=== PATIENT | male | born 1990 | race Caucasian/White ===

== ENCOUNTER 2020-11-11 22:58 | Emergency (ER) | payer OTHER, SELFPAY ==
[2020-11-11 23:02] VITALS: BP 138/76; PULSE 106; RESP 16; TEMP 36.9; O2SAT 96; BMI 24.4
--- NOTE | 2020-11-11 23:36 | XR_ITS ---
EXAMINATION: XR CHEST CLINICAL INFORMATION: Shortness of breath COMPARISON: None TECHNIQUE: Frontal view of the chest was obtained. FINDINGS: The lungs are well expanded. There is no focal consolidation, edema, or effusion. Mild bronchial wall thickening noted. No pneumothorax. The cardiomediastinal silhouette is within normal limits. No acute osseous abnormality. XR/XR chest 1V IMPRESSION: No consolidation. Bronchial wall thickening can be seen with a small airways process such as asthma or atypical/viral infection.
[2020-11-11 23:55] VITALS: BP 119/87; PULSE 94; RESP 18; TEMP 36.9; O2SAT 99
[2020-11-11] MEDS: Magnesium Hydrox/Alum Hydrox 30 ML ORAL.SUSP PO (23:55)
--- NOTE | 2020-11-11 23:55 | ED_ITS ---
HPI - General Adult General Chief complaint: General Medical Stated complaint: Sore throat Time Seen by Provider: 11/11/20 23:27 Source: patient Mode of arrival: ambulatory History of Present Illness HPI narrative: 30-year-old male with past medical history of asthma presenting to the ED complaining sore throat, nausea, diarrhea, and intermittent SOB x1 day. Also reports generalized fatigue/chills. Denies fever, vomiting, CP, abdominal dysuria/hematuria, recent travel, sick contacts, difficulty/inability to swallow Onset (ago): day(s) Related Data Previous Rx's Medication Instructions Recorded albuterol sulfate 2 puff INHALATION Q4-6H PRN #6.7 g 11/12/20 azithromycin See Rx Instructions .ROUTE 11/12/20 .COMPLEX #6 tab Allergies Allergy/AdvReac Type Severity Reaction Status Date / Time No Known Allergies Allergy Verified 11/11/20 23:02 Review of Systems Review of Systems: Constitutional: No Weight loss, No Fever, + Chills, +fatigue ENT/Mouth: No Ear Pain, No Nasal Congestion, No Sinus Pain, No Hoarseness, + sore throat, No Rhinorrhea, No Swallowing Difficulty Cardiovascular: No Chest Pain, +intermittent SOB Respiratory: No Cough, No Sputum, No Wheezing Gastrointestinal: + Nausea, No Vomiting, + Diarrhea, No Constipation, No Abdominal pain Musculoskeletal: No joint pain, No Myalgias, No Joint Swelling Skin: No Skin Lesions, No rash Yes all other systems are reviewed and are negative [facility] Past Medical History Attestation statement: The following information was validated with the patient. Medical History (Updated 11/12/20 @ 00:14 by BULMARO Ponce) Asthma Social History Social History Alcohol intake: never Smoking Status: Never smoker Use of substances other than those prescribed or required for medical reasons: No Advance Directives: No Physical Exam Vital Signs: Vital Signs: Last Vital Signs Temp 98.4 F 11/11/20 23:55 Pulse 94 11/11/20 23:55 Resp 18 11/11/20 23:55 BP 119/87 11/11/20 23:55 Pulse Ox 99 11/11/20 23:55 Body Mass Index 24.4 Const: General: cooperative, healthy appearing and no acute distress Orientation/consciousness: patient oriented x3 Limitations: no limitations HENMT: Head: Yes normal to inspection Ears: hearing grossly normal bilaterally General nose exam: Normal external nose present Face and sinus: Yes normal facial exam Mouth: Normal oral and palatal mucosa present Throat: Yes posterior oropharynx normal (mild posterior oropharyngeal erythema ), Yes tonsils normal, Yes uvula midline and No peritonsillar mass Eyes: General: appearance normal, both eyes and all related structures EOM: EOMs intact bilaterally Neck: Neck: Yes normal visual inspection and Yes no meningeal signs Resp: Effort & Inspection: normal respiratory effort Auscultation: clear to auscultation bilaterally, no rales, no rhonchi and no wheezes Cardio: Rate: regular rate Heart sounds: S1 normal heart sound present and S2 normal heart sound present GI: Inspection: Yes normal to inspection Palpation (GI): Soft to palpation, nontender, no guarding and not rigid Skin: Rashes: no rashes Wounds: no wounds Neuro: General: patient oriented x3 and no meningeal signs Extrem: General: Yes normal to inspection Course Course Course Narrative: * Chest x-ray without consolidation, but bronchial wall thickening which can be seen with a small airway process such as asthma or atypical/viral infection > will initiate Azithromycin and ambulate with pulse ox * 1235-- patient maintained saturation 98-99% on room air with pulse ox on exertion in the ED Imaging results discussed with patient including worrisome signs and symptoms and strict return precautions. Discussed with patient he most likely has COVID- 19, and needs to self isolate for 10-14 days. If he develops constant worsening chest pain, shortness of breath, or high fevers unresolved Tylenol home needs return to the ED Medical Decision Making MDM Narrative Medical decision making narrative: 30-year-old male with past medical history of asthma presenting to the ED complaining sore throat, nausea, diarrhea, and intermittent SOB x1 day. Also reports generalized fatigue/chills. On exam mildly tachycardic, NAD/nontoxic, lungs CTA, uvula midline. Likely viral syndrome/COVID-19. Low concern for EMBOSSING TOOLSETTER, intra-abdominal process, or pneumonia/ACS or PE Plan: CXR, COVID-19 testing Discharge Plan Discharge Clinical Impression: Acute viral syndrome Patient Disposition: Home, Self-Care Instructions: Viral Syndrome (ED) Additional Instructions: Your Chest xray shows atypical viral infection. YOU MOST LIKELY HAVE COVID19 YOU SHOULD SELF ISOLATE FOR 10-14 DAYS Azithromycin is an antibiotic, take as prescribed Albuterol inhaler will help with shortness or breath, take as needed if you have constant or worsening shortness of breath, fever, or chest pain return to the ED Based on your symptoms and history we have sent a COVID-19. Although your RESULT IS PENDING at this time. RESULTS should return within 2-7 days At this time you will be contacted with either NEGATIVE OR POSITIVE results. -Please wait until we contact you for your results. At this time you will be okay for discharge. Please plan for self quarantine for up to 14 days. Do not expose yourself to others. You may not go to work. If testing does come back negative you may return to activities as long as you are no longer having any symptoms for at least 3 days. Please continue to follow cold instructions and wash your hands frequently. You may take Tylenol as directed on the bottle for pain or fever. CDC Guidelines for home isolation: - Stay away from others - WEAR A MASK if you are sick AND STAY HOME - Cover your mouth and nose with a tissue when you cough or sneeze. Dispose of tissues in a lined trash can and wash your hands immediately with soap and water for at least 20 seconds. If soap and water are not available, clean hands with alcohol-based hand electric razor mechanic that contains at least 60% alcohol. - Clean your hands often with soap and water for at least 20 seconds - Avoid touching your eyes, nose and mouth with unwashed hands - Do not share dishes, drinking glasses, cups, eating utensils, towels, or bedding with other people in your home. After using these items, wash them thoroughly with soap and water or put in the hoe worker. - Clean high-touch surfaces in your isolation area ( sick room and bathroom) every day; let a caregiver clean and disinfect high-touch surfaces in other areas of the home. Clean the area or item with soap and water or another detergent if it is dirty. Then, use a household disinfectant. - Limit contact with pets and animals: If you must care for a pet, wash your hands before and after interacting with them) Prescriptions: New albuterol sulfate 90 mcg/actuation HFA aerosol inhaler 2 puff inhalation Q4-6H PRN (Reason: shortness of breath or wheezing) Qty: 6.7 RF: 0 azithromycin 250 mg tablet See Rx Instructions .ROUTE .COMPLEX Qty: 6 RF: 0 Referrals: Physician,None [Primary Care Provider] - 2 days Stand Alone Forms: Work/School Release
[2020-11-12] MEDS: Azithromycin 500 MG TABLET PO (00:32)
== END 2020-11-12 00:42 | disposition home or self-care (01) ==
PROVIDERS: Physician Assistant; Emergency Provider Internal Medicine
DX: B34.9 Viral infection, unspecified (principal); J45.909 Unspecified asthma, uncomplicated; Z20.828 Contact with and (suspected) exposure to other viral communicable diseases
CPT/HCPCS: 71045; 99284; U0003

== ENCOUNTER 2020-11-13 21:21 | Emergency (ER) | payer OTHER, SELFPAY ==
[2020-11-13 21:29] VITALS: BP 140/94; PULSE 118; RESP 20; TEMP 37.6; O2SAT 99
--- NOTE | 2020-11-13 21:36 | ECG_ITS ---
Test Reason : ANXIETY Blood Pressure : / mmHG Vent. Rate : 091 BPM Atrial Rate : 091 BPM P-R Int : 130 ms QRS Dur : 098 ms QT Int : 372 ms P-R-T Axes : 058 023 050 degrees QTc Int : 457 ms Normal sinus rhythm Normal ECG No previous ECGs available Referred By: Denisa Lopez Electronically Signed By:SAM VILLATORO
[2020-11-13 21:40] VITALS: BP 142/00; PULSE 101; PULSE 94; RESP 18; TEMP 37.6; O2SAT 98; O2SAT 99; BMI 24.4
[2020-11-13 21:44] VITALS: BP 120/87
--- NOTE | 2020-11-13 21:47 | ED_ITS ---
HPI - URI/Sore Throat General Chief Complaint: Upper Respiratory Symptoms Stated Complaint: FLU LIKE SYMPTOMS, NO RESULTS FROM TEST DONE 11/11 Time Seen by Provider: 11/13/20 21:36 Source: patient and EMS Mode of arrival: EMS History of Present Illness HPI Narrative: 30-year-old male with past medical history of asthma presenting to the ED complaining of increased anxiety since earlier today with assoc chest discomfort and dry mouth. Patient was recently seen and tx in ED on 11/11 for viral sx's, x-ray showed bronchial wall thickening/asthma/atypical or viral infection, patient currently taking Azithromycin. Denies fever, chills, sh ortness of breath. Admits to similar symptoms with anxiety in the past. COVID- 19 test still pending Related Data Previous Rx's Medication Instructions Recorded albuterol sulfate 2 puff INHALATION Q4-6H PRN #6.7 g 11/12/20 azithromycin See Rx Instructions .ROUTE 11/12/20 .COMPLEX #6 tab Allergies Allergy/AdvReac Type Severity Reaction Status Date / Time No Known Allergies Allergy Verified 11/13/20 21:39 Review of Systems Review of Systems: Constitutional: No Weight loss, No Fever, No Chills Cardiovascular: + Chest Pain, No SOB Respiratory: No Cough, No Sputum, No Wheezing Gastrointestinal: No Nausea, No Vomiting, No Diarrhea, No Constipation, No Abdominal pain Musculoskeletal: No joint pain, No Myalgias, No Joint Swelling Skin: No Skin Lesions, No rash Neuro: +anxiety Yes all other systems are reviewed and are negative PMFSH Past Medical History Attestation statement: The following information was validated with the patient. Medical History (Updated 11/13/20 @ 23:21 by BULMARO Ponce) Asthma Social History Social History Alcohol intake: never Smoking Status: Never smoker Advance Directives: No Advance Directives Information Provided: No Physical Exam Vital Signs: Vital Signs: Last Vital Signs Temp 99.7 F 11/13/20 21:40 Pulse 101 H 11/13/20 21:40 Resp 18 11/13/20 21:40 BP 120/87 11/13/20 21:44 Pulse Ox 99 11/13/20 21:40 Body Mass Index 24.4 Const: General: cooperative, healthy appearing and anxious Orientation/consciousness: patient oriented x3 Limitations: no limitations HENMT: Head: Yes normal to inspection Ears: hearing grossly normal bilaterally General nose exam: Normal external nose present Face and sinus: Yes normal facial exam Eyes: General: appearance normal, both eyes and all related structures EOM: EOMs intact bilaterally Neck: Neck: Yes normal visual inspection Resp: Effort & Inspection: normal respiratory effort Auscultation: clear to auscultation bilaterally, no rales, no rhonchi and no wheezes Cardio: Rate: regular rate Heart sounds: S1 normal heart sound present and S2 normal heart sound present GI: Inspection: Yes normal to inspection Skin: Rashes: no rashes Wounds: no wounds Neuro: General: patient oriented x3 Gait exam (Neuro): Normal gait present Extrem: General: Yes normal to inspection Course Course Course Narrative: EKG NSR rate 91, nonischemic * patient reports sx improvement after ativan. Is sleeping in chair, denies CP/anxiety at present. Did report some nausea >Zofran given MDM - URI/Sore Throat MDM Narrative Medical decision making narrative: On exam low grade temp, tachycardic, anxious, jittery, nontoxic appearing, lungs cta. Concern for anxiety reaction. Low concern for ACS/PE Plan: EKG, Ativan/Tylenol, reassess Discharge Plan Discharge Clinical Impression: Anxiety Patient Disposition: Home, Self-Care Instructions: Anxiety (ED) Additional Instructions: Continue taking previously prescribed medications new line stay hydrated at home Follow-up with her primary care doctor You should continue to self isolate as a COVID-19 swab is pending. Continue take Tylenol at home for fevers, and Motrin Tylenol does not control temperature. If you have constant worsening shortness of breath, chest pain, or fever unresolved medications return to the ED Prescriptions: No Action albuterol sulfate 90 mcg/actuation HFA aerosol inhaler 2 puff inhalation Q4-6H PRN (Reason: shortness of breath or wheezing) Qty: 6.7 RF: 0 azithromycin 250 mg tablet See Rx Instructions .ROUTE .COMPLEX Qty: 6 RF: 0 Referrals: Physician,Unknown [Primary Care Provider] - 2 days
[2020-11-13] MEDS: LORazepam 1 MG TABLET PO (22:01)
[2020-11-13] MEDS: Acetaminophen 325 MG TABLET 650 MG PO (22:01)
[2020-11-13 23:30] VITALS: BP 113/87; PULSE 85; RESP 18; TEMP 37.6; O2SAT 98
== END 2020-11-13 23:29 | disposition home or self-care (01) ==
PROVIDERS: Emergency Provider Emergency Medicine
DX: F41.9 Anxiety disorder, unspecified (principal)
CPT/HCPCS: 93005; 99283

== ENCOUNTER 2020-11-14 12:17 | Emergency (ER) | payer OTHER, SELFPAY ==
[2020-11-14 14:02] VITALS: BP 140/80; PULSE 96; RESP 16; TEMP 37.1; O2SAT 99; BMI 24.4
--- NOTE | 2020-11-14 14:50 | ED.ANXIETY ---
HPI - Anxiety General Chief Complaint: Anxiety Stated Complaint: anxiety Time Seen by Provider: 11/14/20 14:02 Source: patient Mode of arrival: ambulatory Limitations: no limitations History of Present Illness HPI narrative: Otherwise healthy 30-year-old male who denies significant past medical history states 4 days ago developed some body aches and chills he came to emergency room had a COVID test and he has been awaiting results he has been increasingly anxious as he has been home not doing anything and thinking about his COVID results which is causing exacerbation and his anxiety. He denies any chest pain or fever. No SI or HI. MD complaint: anxiety Provoking factors: none known Associated symptoms: denies other symptoms Related Data Previous Rx's Medication Instructions Recorded hydroxyzine HCl 25 mg PO BID PRN #14 tab 11/14/20 Allergies Allergy/AdvReac Type Severity Reaction Status Date / Time No Known Allergies Allergy Unverified 07/29/20 17:28 Review of Systems Review of Systems: Constitutional: No Weight loss, No Fever, No Chills, No Night Sweats, No Fatigue, No Malaise ENT/Mouth: No Hearing loss, No Ear Pain, No Nasal Congestion, No Sinus Pain, No Hoarseness, No sore throat, No Rhinorrhea, No Swallowing Difficulty Eyes: No Eye Pain, No Swelling, No Redness, No Foreign Body, No Discharge, No Vision Changes Cardiovascular: No Chest Pain, No SOB, No Dyspnea on Exertion, No Orthopnea, No Edema, No Palpitations Respiratory: No Cough, No Sputum, No Wheezing, No Dyspnea Gastrointestinal: No Nausea, No Vomiting, No Diarrhea, No Constipation, No abdominal Pain, No Hematochezia, No Melena Genitourinary: no irregular bleeding, No Dysuria, No Urinary Frequency, No Hematuria, No Urinary Incontinence, No Urgency, No Flank Pain Musculoskeletal: No joint pain, No Myalgias, No Joint Swelling Skin: No Skin Lesions, No rash Neuro: No Weakness, No Numbness, No Paresthesias, No Loss of Consciousness, No Dizziness, No Headache Psych: + Anxiety/Panic, No Depression, No SI/HI/AH/VH Heme/Lymph: No Bruising, No Bleeding,No Lymphadenopathy Endocrine: No Polyuria, No Polydipsia, No Temperature Intolerance [facility] Past Medical History Medical History (Updated 11/14/20 @ 14:52 by Everardo Koch NP) Asthma Surgical History History of appendectomy Social History Social History Advance Directives: No Advance Directives Information Provided: Yes Physical Exam Vital Signs: Vital Signs: Last Vital Signs Temp 98.7 F 11/14/20 14:02 Pulse 96 11/14/20 14:02 Resp 16 11/14/20 14:02 BP 140/80 H 11/14/20 14:02 Pulse Ox 99 11/14/20 14:02 Body Mass Index 24.4 Reviewed Const: Other: Anxious appearing General: cooperative and healthy appearing; No acute distress or intoxicated appearing Nutritional Appearance: average body habitus Orientation/consciousness: patient oriented x3 HENMT: Head: Yes normal to inspection Ears: hearing grossly normal bilaterally Eyes: General: appearance normal, both eyes and all related structures Visual Ta: normal visual ta by confrontation Neck: Neck: Yes normal visual inspection, No positive Brudzinski's sign, No positive Kernig's sign and No tender Thyroid: Thyroid normal Chest: Chest palpation & inspection: normal inspection of the chest Resp: Effort & Inspection: normal respiratory effort Auscultation: clear to auscultation bilaterally Cardio: Jugular venous distension: no JVD Rate: regular rate Rhythm: regular rhythm Heart sounds: S1 normal heart sound present and S2 normal heart sound present GI: Inspection: Yes normal to inspection Percussion: Yes normal to percussion Auscultation: normal bowel sounds : General: Yes no CVA tenderness Back/Spine/Pelvis: Back: no CVA tenderness Skin: General skin exam: no rashes or lesions noted Neuro: General: patient oriented x3 Extrem: General: Yes normal to inspection Course Course Course Narrative: No previous records it appears that patient used a different last name on previous 2 visits thus cannot locate the COVID results in [facility] lab was called and he used name octavio Oneal and his ID has Octavio Bowden - restriction supervise has been made aware this will review records lab checked on this name and there is COVID test that is still pending. Given his increased psychological stressors from not having her results rapid COVID test will be done. Reevaluation(s) Reevaluation #1: Patient call with negative results will download results from his patient portal. MDM - Anxiety Lab Data Labs: Lab Results 11/14/20 Range/Units 14:48 Coronavirus (PCR) NEGATIVE (Negative) Influenza Type A (PCR) NEGATIVE (Negative) Influenza Type B (PCR) NEGATIVE (Negative) RSV RNA Qual (PCR) NEGATIVE (Negative) Discharge Plan Discharge Clinical Impression: Acute viral syndrome, Anxiety about health Patient Disposition: Home, Self-Care Instructions: Viral Syndrome (ED), Anxiety (ED) Additional Instructions: Based on your symptoms and history we have sent a COVID-19. Although your RESULT IS PENDING at this time. RESULTS should return within 72 hours. At this time you will be contacted with either NEGATIVE OR POSITIVE results. -Please wait until we contact you for your results. At this time you will be okay for discharge. Please plan for self quarantine for up to 14 days. Do not expose yourself to others. You may not go to work. If testing does come back negative you may return to activities as long as you are no longer having any symptoms for at least 3 days. Please continue to follow cold instructions and wash your hands frequently. You may take Tylenol as directed on the bottle for pain or fever. Patient seen in the emergency department and should be excused from work until negative test results AND until 72 hours without any symptoms AND at least 10 days have passed since symptoms first appeared or since last exposure to COVID-19 positive patient CDC Guidelines for home isolation: - Stay away from others - WEAR A MASK if you are sick AND STAY HOME - Cover your mouth and nose with a tissue when you cough or sneeze. Dispose of tissues in a lined trash can and wash your hands immediately with soap and water for at least 20 seconds. If soap and water are not available, clean hands with alcohol-based hand mail sorting supervisor that contains at least 60% alcohol. - Clean your hands often with soap and water for at least 20 seconds - Avoid touching your eyes, nose and mouth with unwashed hands - Do not share dishes, drinking glasses, cups, eating utensils, towels, or bedding with other people in your home. After using these items, wash them thoroughly with soap and water or put in the administrative sales assistant. - Clean high-touch surfaces in your isolation area ( sick room and bathroom) every day; let a caregiver clean and disinfect high-touch surfaces in other areas of the home. Clean the area or item with soap and water or another detergent if it is dirty. Then, use a household disinfectant. - Limit contact with pets and animals: If you must care for a pet, wash your hands before and after interacting with them Prescriptions: New hydroxyzine HCl 25 mg tablet 25 mg PO BID PRN (Reason: anxiety) Qty: 14 RF: 0 Referrals: Physician,None [Primary Care Provider] - 1 week (Primary care PHONE VISIT ) Stand Alone Forms: Work/School Release Interventions: ED Discharge Assessment Last Done: 11/14/20 15:02 Discharge Date/Time: 11/14/20 15:03
[2020-11-14 15:47] LABS: Influenza A PCR NEGATIVE (Negative); Influenza B PCR NEGATIVE (Negative); Resp Syncy Virus RNA Qual PCR NEGATIVE (Negative); SARS COV2 PCR INHOUSE NEGATIVE (Negative)
== END 2020-11-14 15:03 | disposition home or self-care (01) ==
PROVIDERS: Nurse Practitioner Primary Care; Emergency Provider Emergency Medicine
DX: B34.9 Viral infection, unspecified (principal); M79.10 Myalgia, unspecified site; F41.1 Generalized anxiety disorder; F43.0 Acute stress reaction; Z20.828 Contact with and (suspected) exposure to other viral communicable diseases
CPT/HCPCS: 0241U; 99283

== ENCOUNTER 2020-11-15 17:28 | Emergency (ER) | payer OTHER, SELFPAY ==
[2020-11-15 17:41] VITALS: BP 139/86; PULSE 91; RESP 16; TEMP 36.6; O2SAT 100; BMI 24.4
--- NOTE | 2020-11-15 17:41 | ED.GENADULT ---
HPI - General Adult General Chief complaint: General Medical Stated complaint: chest wall pain x 1 week Time Seen by Provider: 11/15/20 17:35 Related Data Previous Rx's Medication Instructions Recorded albuterol sulfate 2 puff INHALATION Q4-6H PRN #6.7 g 11/12/20 azithromycin See Rx Instructions .ROUTE 11/12/20 .COMPLEX #6 tab hydroxyzine HCl 25 mg PO BID PRN #14 tab 11/14/20 Allergies Allergy/AdvReac Type Severity Reaction Status Date / Time No Known Allergies Allergy Unverified 11/15/20 07:42 [facility] Past Medical History Medical History (Updated 11/15/20 @ 07:42 by Karyn Peoples) Asthma Asthma Surgical History (System 11/15/20 @ 07:42 by Karyn Peoples) History of appendectomy Social History Social History (System 11/15/20 @ 07:42 by Karyn Peoples) Alcohol intake: never Smoking Status: Never smoker Course Course Course Narrative: 174-This serves as a rapid medical exam. 30 yo male with past medical history of asthma here with chest pain and constipation. Last BM 2 days ago. No nausea, vomiting, abdominal pain. Was having loose stools and took an imodium 2 days ago. Cough improved. Mild SOB. No fevers or chills. Chest walll pain with movement and deep breathing. Currently on azithromycin for presumed bronchitis. Two negative COVID tests this week. 3 ED visits for similar complaints ?malingering vs anxiety. Taking hydroxyxine PRN with no relief from anxiety per patient. Offered analgesia, RX for constipation but patient declined. Would like additional testing done for his chest pain. On exam more c/w with MS pain which is likely secondary to chest wall strain. Low concern for ACS in this healthy 30 yr old male with no risk factors. Patient requesting repeat CXR however I do not think it is necessary as clinically patient is improving. Will defer additional HPI, ROS, PE and further evaluation to primary provider. Discharge Plan Discharge Prescriptions: No Action albuterol sulfate 90 mcg/actuation HFA aerosol inhaler 2 puff inhalation Q4-6H PRN (Reason: shortness of breath or wheezing) Qty: 6.7 RF: 0 azithromycin 250 mg tablet See Rx Instructions .ROUTE .COMPLEX Qty: 6 RF: 0 hydroxyzine HCl 25 mg tablet 25 mg PO BID PRN (Reason: anxiety) Qty: 14 RF: 0
[2020-11-15 23:51] LABS: Basophils Percent Auto 0.5 % (0-2); Eosinophils Absolute Auto 0.1 X10*3/uL (0.0-0.4); Eosinophils Percent Auto 0.6 % (0-4); Hematocrit 44.2 % (42-52); Hemoglobin 15.1 g/dl (14.0-18.0); Imm Gran Abs Auto 0.01 X10*3/uL (0.00-0.03); Imm Gran Pct Auto 0.1 % (0.0-0.4); Lymphocytes Absolute Auto 2.8 X10*3/uL (1.2-4.9); Lymphocytes Percent Auto 32.7 % (20-40); MANUAL DIFF FLAG NO; Mean Corpuscular HGB Conc 34.2 g/dl (31.0-36.0); Mean Corpuscular Hemoglobin 28.3 pg (27.0-33.0); Mean Corpuscular Volume 82.8 fL (80-98); Mean Platelet Volume 10.9 fL (9.4-12.4); Monocytes Absolute Auto 0.5 X10*3/uL (0.1-1.2); Monocytes Percent Auto 5.7 % (2-11); Neutrophils Absolute Auto 5.2 X10*3/uL (2.0-8.3); Neutrophils Percent Auto 60.4 % (45-73); Platelet Count 260 X10*3/uL (160-400); Red Blood Count 5.34 X10*6/uL (4.60-5.80); Red Cell Distribution Width 12.3 % (11.0-16.0); White Blood Count 8.6 X10*3/uL (4.8-10.8)
[2020-11-16 00:23] VITALS: BP 134/83; PULSE 79; RESP 18; TEMP 36.4; O2SAT 99
[2020-11-16 00:35] LABS: Alanine Aminotransferase 18 U/L (0-40); Albumin Level 4.6 g/dL (3.5-5.0); Alkaline Phosphatase 87 U/L (39-117); Anion Gap 12 (12-20); Aspartate Amino Transferase 17 U/L (5-37); Bilirubin Total 0.6 mg/dL (0.0-1.0); Blood Urea Nitrogen 13 mg/dL (9-16); Calcium 9.2 mg/dL (8.4-10.2); Carbon Dioxide 27 mmol/L (22-29); Chloride 103 mmol/L (96-108); Creatinine Clr Calc Pharmacy 118.3; Estimated Glomerular Filt Rate > 60; Glucose Random 93 mg/dL (60-115); Potassium 3.8 mmol/l (3.3-5.1); Sodium 138 mmol/L (135-145); Total Protein 7.7 g/dL (6.5-8.0)
--- NOTE | 2020-11-16 02:20 | ED.GENADULT ---
HPI - General Adult General Chief complaint: General Medical Stated complaint: chest wall pain x 1 week Time Seen by Provider: 11/15/20 17:35 Source: patient Mode of arrival: ambulatory Limitations: no limitations History of Present Illness HPI narrative: Patient comes emergency room complaining of burning sensation in his stomach. Patient states he feels very anxious that he has not received his COVID results. Patient was seen here yesterday, tested for COVID, his results are negative. Patient denies abdominal pain, states he occasionally has burning sensation. Initially when he came in to the emergency room, he stated that he had chest pain, patient states he has no chest pain now. Patient has been seen 5 times in 1 week for similar complaints, patient states he eats a copy of his results to be able to return to work. Related Data Previous Rx's Medication Instructions Recorded albuterol sulfate 2 puff INHALATION Q4-6H PRN #6.7 g 11/12/20 azithromycin See Rx Instructions .ROUTE 11/12/20 .COMPLEX #6 tab hydroxyzine HCl 25 mg PO BID PRN #14 tab 11/14/20 omeprazole 20 mg PO DAILY #10 cap 11/16/20 Allergies Allergy/AdvReac Type Severity Reaction Status Date / Time No Known Allergies Allergy Unverified 11/15/20 07:42 Review of Systems Review of Systems: Constitutional : No Weight loss, No Fever, No Chills, No Night Sweats, No Fatigue, No Malaise ENT/Mouth : No Hearing loss, No Ear Pain, No Nasal Congestion, No Sinus Pain, No Hoarseness, No sore throat, No Rhinorrhea, No Swallowing Difficulty Eyes: No Eye Pain, No Swelling, No Redness, No Foreign Body, No Discharge, No Vision Changes Cardiovascular : Chest wall pain for a week, but resolved., No SOB, No Dyspnea on Exertion, No Orthopnea, No Edema, No Palpitations Respiratory : No Cough, No Sputum, No Wheezing, No Smoke Exposure, No Dyspnea Gastrointestinal : No Nausea, No Vomiting, No Diarrhea, No Constipation, No abdominal Pain, No Hematochezia, No Melena Genitourinary : no irregular bleeding, No Dysuria, No Urinary Frequency, No Hematuria, No Urinary Incontinence, No Urgency, No Flank Pain, No Urinary Flow Changes, No Hesitancy Musculoskeletal : No joint pain, No Myalgias, No Joint Swelling Skin : No Skin Lesions, No rash Neuro : No Weakness, No Numbness, No Paresthesias, No Loss of Consciousness, No Dizziness, No Headache Psych : No Anxiety/Panic, No Depression, No SI/HI/AH/VH, No Social Issues, Heme/Lymph: No Bruising, No Bleeding,No Lymphadenopathy Endocrine : No Polyuria, No Polydipsia, No Temperature Intolerance [facility] Past Medical History Medical History (Updated 11/16/20 @ 02:29 by Martha Camarena MD) Asthma Asthma Surgical History History of appendectomy Social History Social History (System 11/15/20 @ 07:42 by Karyn Peoples) Alcohol intake: never Smoking Status: Never smoker Advance Directives: No Physical Exam Vital Signs: Vital Signs: Last Vital Signs Temp 97.5 F 11/16/20 00:23 Pulse 79 11/16/20 00:23 Resp 18 11/16/20 00:23 BP 134/83 11/16/20 00:23 Pulse Ox 99 11/16/20 00:23 Body Mass Index 24.4 Course Course Course Narrative: I discussed the labs with the patient, patient seems to have a lot of anxiety. Patient was provided with a copy of his COVID results. Patient was given oral GI cocktail. Medical Decision Making Lab Data Result diagrams: 11/15/20 23:44 11/15/20 23:44 Labs: Lab Results 11/15/20 11/15/20 Range/Units 23:44 23:44 WBC 8.6 (4.8-10.8) X10*3/uL RBC 5.34 (4.60-5.80) X10*6/uL Hgb 15.1 (14.0-18.0) g/dl Hct 44.2 (42-52) % MCV 82.8 (80-98) fL MCH 28.3 (27.0-33.0) pg MCHC 34.2 (31.0-36.0) g/dl RDW 12.3 (11.0-16.0) % Plt Count 260 (160-400) X10*3/uL MPV 10.9 (9.4-12.4) fL Immature Gran % (Auto) 0.1 (0.0-0.4) % Neut % (Auto) 60.4 (45-73) % Lymph % (Auto) 32.7 (20-40) % [place] % (Auto) 5.7 (2-11) % Eos % (Auto) 0.6 (0-4) % Baso % (Auto) 0.5 (0-2) % Lymph # (Auto) 2.8 (1.2-4.9) X10*3/uL [place] # (Auto) 0.5 (0.1-1.2) X10*3/uL Eos # (Auto) 0.1 (0.0-0.4) X10*3/uL Baso # (Auto) 0.0 (0.0-0.2) X10*3/uL Abs Immat Gran (auto) 0.01 (0.00-0.03) X10*3/uL Absolute Neuts (auto) 5.2 (2.0-8.3) X10*3/uL Absolute Nucleated RBC 0.000 (0.0-0.012) X10*3/uL Nucleated RBC % (auto) 0.0 (0.0-0.2) /100WBC Sodium 138 (135-145) mmol/L Potassium 3.8 (3.3-5.1) mmol/l Chloride 103 (96-108) mmol/L Carbon Dioxide 27 (22-29) mmol/L Anion Gap 12 (12-20) BUN 13 (9-16) mg/dL Creatinine 1.02 (0.5-1.4) mg/dL Estim Creat Clear Calc 118.3 Estimated GFR > 60 Random Glucose 93 (60-115) mg/dL Calcium 9.2 (8.4-10.2) mg/dL Total Bilirubin 0.6 (0.0-1.0) mg/dL AST 17 (5-37) U/L ALT 18 (0-40) U/L Alkaline Phosphatase 87 (39-117) U/L Total Protein 7.7 (6.5-8.0) g/dL Albumin 4.6 (3.5-5.0) g/dL Discharge Plan Discharge Clinical Impression: Dyspepsia Patient Disposition: Home, Self-Care Instructions: Diet for Stomach Ulcers and Gastritis (ED), Gastroesophageal Reflux Disease (ED) Additional Instructions: Please follow-up with your primary care physician tomorrow. If you have any worsening or new symptoms, please return to the emergency room or call 911 Prescriptions: New omeprazole 20 mg capsule,delayed release(DR/EC) 20 mg PO DAILY Qty: 10 RF: 0 No Action albuterol sulfate 90 mcg/actuation HFA aerosol inhaler 2 puff inhalation Q4-6H PRN (Reason: shortness of breath or wheezing) Qty: 6.7 RF: 0 azithromycin 250 mg tablet See Rx Instructions .ROUTE .COMPLEX Qty: 6 RF: 0 hydroxyzine HCl 25 mg tablet 25 mg PO BID PRN (Reason: anxiety) Qty: 14 RF: 0
[2020-11-16] MEDS: Magnesium Hydrox/Alum Hydrox 30 ML ORAL.SUSP PO (02:42)
[2020-11-16] MEDS: Lidocaine HCl Viscous 2 % 15 ML SOLUTION MUCOUS MEM (02:42)
[2020-11-16 02:45] VITALS: BP 147/88; PULSE 90; RESP 18; O2SAT 99
== END 2020-11-16 02:47 | disposition home or self-care (01) ==
PROVIDERS: Emergency Provider Emergency Medicine
DX: R10.13 Epigastric pain (principal)
CPT/HCPCS: 36415; 80053; 85025; 99283; 99284

== ENCOUNTER 2021-06-24 22:39 | Emergency (ER) | payer OTHER, SELFPAY ==
--- NOTE | ~2021-06-24 | XR_ITS ---
EXAMINATION: XR HAND, RIGHT CLINICAL INFORMATION: Pain after punching wall COMPARISON: None TECHNIQUE: 3 views of the right hand FINDINGS: There is a fracture of the neck of the fourth digit middle phalanx. There is palmar angulation of the distal fragment. No definite intra-articular extension. Joint spaces are maintained. The soft tissues are swollen of the fourth digit. XR/XR hand wrist RT IMPRESSION: Fourth digit middle phalanx fracture with angulation.
[2021-06-24 22:46] VITALS: BP 129/82; PULSE 89; RESP 18; TEMP 36.8; O2SAT 99; BMI 27.8
--- NOTE | 2021-06-25 03:24 | ED.EXTPRO ---
HPI - Extremity Problem General Chief complaint: Extremity Injury, Upper Stated complaint: hand inj Time Seen by Provider: 06/25/21 03:12 Source: patient Mode of arrival: ambulatory History of Present Illness HPI Narrative: 31-year-old male without significant past medical history presents after punching a wall and resulting hand pain and deformity noted at the right 4th digit. Related Data Previous Rx's Medication Instructions Recorded hydroxyzine HCl 25 mg tablet 25 mg PO BID PRN #14 tab 11/22/20 omeprazole 20 mg capsule,delayed 20 mg PO DAILY #10 cap 12/08/20 release escitalopram oxalate 5 mg tablet 5 mg PO DAILY #30 tab 12/30/20 ProAir HFA 90 mcg/actuation 2 puff INHALATION Q4-6H PRN #8.5 g 02/10/21 aerosol inhaler (albuterol sulfate) NS albuterol sulfate 2.5 mg INHALATION Q6H #180 ml 02/10/21 Allergies Allergy/AdvReac Type Severity Reaction Status Date / Time No Known Allergies Allergy Verified 01/06/21 14:20 Review of Systems Review of Systems: Pertinent positives and negatives as stated in HPI 10 point review of systems otherwise negative. [facility] Past Medical History Source: nursing notes reviewed Medical History Asthma Asthma GERD (gastroesophageal reflux disease) Physical exam Surgical History History of appendectomy Family History Family History Mother No problems noted. Father No problems noted. Social History Social History Alcohol intake: never Advance Directives: No Advance Directives Information Provided: No Physical Exam Vital Signs: Vital Signs: Last Vital Signs Temp 98.2 F 06/24/21 22:46 Pulse 89 06/24/21 22:46 Resp 18 06/24/21 22:46 BP 129/82 06/24/21 22:46 Pulse Ox 99 06/24/21 22:46 Body Mass Index 27.8 VITAL SIGNS: Reviewed. GENERAL: Well developed, well nourished, in no acute distress. HEAD: Normocephalic/atraumatic EYES: PERRLA, EOMI LUNGS: Normal breath sounds. No adventitious sounds or accessory muscle use. SpO2<99> CARDIOVASCULAR: Regular rate and rhythm without noted murmurs ABDOMEN: Soft, non-tender, non-distended with bowel sounds. RIGHT HAND: There is noted deformity and ecchymosis at the right 4th digit with good capillary refill and sensation is intact. SKIN: Inspection of the skin reveals no rashes NEUROLOGIC: Alert and oriented x 4. Course Course Course Narrative: 31-year-old male with fracture of right 4th phalanx neck with mild angulation. Patient was placed in an ulnar gutter after discussing with Orthopedics who states that they will reach out to the patient on Sunday. Patient was also provided with combination analgesics. Discharge Plan Discharge Clinical Impression: Fracture of finger, closed Patient Disposition: Home, Self-Care Instructions: Finger Fracture (ED), Splint Care (ED) Additional Instructions: 1. Recommend using [id number] Tylenol/ibuprofen as needed for pain control. Can obtain additional pain relief with application of ice to unexposed skin for 10-15 minutes, 3 to 4 times a day. 2. Keep the splint in place until you are evaluated by orthopedics on Sunday. You will be receiving a phone call from their office on Sunday so please answer your phone. Return to the ER for acute worsening of your symptoms. Prescriptions: No Action hydroxyzine HCl 25 mg tablet 25 mg PO BID PRN (Reason: anxiety) Qty: 14 RF: 0 escitalopram oxalate 5 mg tablet 5 mg PO DAILY Qty: 30 RF: 0 albuterol sulfate [ProAir HFA] 90 mcg/actuation HFA aerosol inhaler 2 puff inhalation Q4-6H PRN (Reason: shortness of breath or wheezing) Qty: 8.5 RF: 0 albuterol sulfate 2.5 mg /3 mL (0.083 %) solution for nebulization 2.5 mg inhalation Q6H Qty: 180 RF: 0 omeprazole 20 mg capsule,delayed release(DR/EC) 20 mg PO DAILY Qty: 10 RF: 0 Referrals: [facility] [Primary Care Provider] - 2 days Skip Adam MD [Physician] - 2 days (Please evaluate and treat as indicated for close fracture of 4th digit neck. Patient is in ulnar gutter.)
[2021-06-25] MEDS: Acetaminophen 325 MG TABLET 975 MG PO (03:28)
[2021-06-25] MEDS: Ibuprofen 400 MG TABLET PO (03:28)
== END 2021-06-25 04:25 | disposition home or self-care (01) ==
PROVIDERS: Emergency Provider Student in an Organized Health Care Education/Training Program
DX: S62.654A Nondisplaced fracture of middle phalanx of right ring finger, initial encounter for closed fracture (principal); W22.09XA Striking against other stationary object, initial encounter; Y93.9 Activity, unspecified; Y92.9 Unspecified place or not applicable; Y99.9 Unspecified external cause status
CPT/HCPCS: 29125; 73110; 73130; 99283

== ENCOUNTER 2021-06-27 08:49 | Outpatient (REF) | payer OTHER, SELFPAY ==
--- NOTE | ~2021-06-27 | XR_ITS ---
EXAMINATION: XR HAND, RIGHT CLINICAL INFORMATION: Right hand pain. COMPARISON: Right hand and wrist radiographs dated 06/24/2021 TECHNIQUE: PA, lateral, and oblique views of the right hand. FINDINGS: Redemonstration of a fracture at the 4th proximal phalanx with increased displacement when compared to the prior examination. No dislocation. No joint space narrowing or marginal osteophytes. No osseous erosion. XR/XR hand RT min 3V IMPRESSION: Proximal 4th phalangeal fracture redemonstrated with increased displacement when compared to the prior examination.
== END 2021-06-27 08:50 | disposition home or self-care (01) ==
LOC: HO.HOSX 08:49
PROVIDERS: Visit Provider Physician Assistant
DX: S62.624A Displaced fracture of middle phalanx of right ring finger, initial encounter for closed fracture (principal)
CPT/HCPCS: 26725; 73130; 99202

== ENCOUNTER 2021-07-06 05:55 | Outpatient (REF) | payer OTHER, SELFPAY ==
--- NOTE | ~2021-07-06 | XR_ITS ---
EXAMINATION: XR HAND, RIGHT CLINICAL INFORMATION: Pain in the right hand COMPARISON: Right hand 06/27/2021 TECHNIQUE: PA, lateral, and oblique views of the right hand. FINDINGS: There is a normal alignment of the distal end mid phalanx 4th digit status post stabilization with the 4th and 5th digit in a hard cast. No additional bony abnormalities seen. XR/XR hand RT min 3V IMPRESSION: Normal alignment of distal end mid phalanx 4th digit status post stabilization when compared to previous exam 06/24/2021.
== END 2021-07-06 05:56 | disposition home or self-care (01) ==
LOC: HO.HOSX 05:55
PROVIDERS: Visit Provider Physician Assistant
DX: S62.602D Fracture of unspecified phalanx of right middle finger, subsequent encounter for fracture with routine healing (principal)
CPT/HCPCS: 73130; 99212

== ENCOUNTER 2021-07-15 12:48 | Outpatient (REF) | payer OTHER, SELFPAY ==
--- NOTE | ~2021-07-15 | XR_ITS ---
EXAMINATION: XR HAND, RIGHT CLINICAL INFORMATION: Fracture COMPARISON: Previous x-rays most recent 07/06/2021 TECHNIQUE: PA, lateral, and oblique views of the right hand. FINDINGS: There is a healing fracture of the distal aspect of the middle phalanx of the fourth finger. Alignment is anatomic. No other fracture is seen. Joint spaces are normal. Soft tissues are normal. XR/XR hand RT min 3V IMPRESSION: Healing fracture of the middle phalanx of the right fourth finger.
== END 2021-07-15 12:49 | disposition home or self-care (01) ==
LOC: HO.HOSX 12:48
PROVIDERS: PCP Internal Medicine; Visit Provider Physician Assistant
DX: S62.622D Displaced fracture of middle phalanx of right middle finger, subsequent encounter for fracture with routine healing (principal)
CPT/HCPCS: 73130; 99212

== ENCOUNTER 2021-07-29 12:31 | Outpatient (REF) | payer OTHER, SELFPAY ==
--- NOTE | ~2021-07-29 | XR_ITS ---
EXAMINATION: XR HAND, RIGHT CLINICAL INFORMATION: Pain. COMPARISON: Multiple priors, most recent right hand radiographs dated 07/15/2021. TECHNIQUE: PA, lateral, oblique, and [place] views of the right hand. FINDINGS: Healed fourth middle phalanx fracture in unchanged anatomic alignment. No acute fracture or dislocation. No joint space narrowing or marginal osteophytes. No osseous erosion. No abnormal soft tissue calcification. XR/XR hand RT min 3V IMPRESSION: Healed fourth middle phalangeal fracture.
== END 2021-07-29 12:32 | disposition home or self-care (01) ==
LOC: HO.HOSX 12:31
PROVIDERS: Visit Provider Physician Assistant
DX: S62.624D Displaced fracture of middle phalanx of right ring finger, subsequent encounter for fracture with routine healing (principal)
CPT/HCPCS: 73130; 99212

== ENCOUNTER 2021-08-12 12:48 | Outpatient (REF) | payer OTHER, SELFPAY | END 2021-08-12 12:49 | disposition home or self-care (01) | LOC: HO.HOSX 12:48 | PROVIDERS: Visit Provider Physician Assistant | DX: Z13.89 Encounter for screening for other disorder (principal) ==

== ENCOUNTER 2022-03-31 12:41 | Outpatient (REF) | payer OTHER, SELFPAY ==
[2022-03-31 13:17] LABS: COVID-19 Test Positive (Negative); IDNOW Serial# 55D5AD1C
== END 2022-03-31 12:42 | disposition home or self-care (01) ==
LOC: HO.LAB 12:41
PROVIDERS: Visit Provider Internal Medicine
DX: Z20.822 Contact with and (suspected) exposure to COVID-19 (principal)
CPT/HCPCS: 87635; C9803

== ENCOUNTER 2022-05-22 08:48 | Emergency (ER) | payer OTHER, SELFPAY ==
[2022-05-22 10:06] VITALS: BP 115/77; PULSE 97; RESP 19; TEMP 36.6; O2SAT 99; BMI 29.2
[2022-05-22 10:36] LABS: Appearance Urine HAZY; Color Urine YELLOW; Glucose Urine UA NEG (NEG); Leukocyte Esterase Urine NEG (NEG); Nitrite Urine NEG (NEG); PH 5.5 (5.0-8.0); Specific Gravity - Urine 1.025 (1.005-1.025); Urine Blood NEG (NEG); Urine Ketones NEG (NEG); Urine Protein TRACE MG/DL (NEG-TRACE)
[2022-05-22 10:37] LABS: Basophils Percent Auto 0.1 % (0-2); Eosinophils Percent Auto 0.1 % (0-4); Hematocrit 43.7 % (42.0-52.0); Hemoglobin 14.8 g/dl (14.0-18.0); Imm Gran Abs Auto 0.05 X10*3/uL (0.00-0.03); Imm Gran Pct Auto 0.5 % (0.0-0.4); Lymphocytes Absolute Auto 0.5 X10*3/uL (1.2-4.9); Lymphocytes Percent Auto 4.9 % (20-40); MANUAL DIFF FLAG SCAN; Mean Corpuscular HGB Conc 33.9 g/dl (31.0-36.0); Mean Corpuscular Hemoglobin 27.9 pg (27.0-33.0); Mean Corpuscular Volume 82.3 fL (80.0-98.0); Monocytes Absolute Auto 0.4 X10*3/uL (0.1-1.2); Neutrophils Absolute Auto 8.6 x10*3/uL (2.0-8.3); Neutrophils Percent Auto 90.4 % (45-73); Platelet Count 195 X10*3/uL (160-400); Red Blood Count 5.31 X10*6/uL (4.60-5.80); Red Cell Distribution Width 12.7 % (11.0-16.0); SCAN SMEAR FLAG 1; White Blood Count 9.5 X10*3/uL (4.8-10.8)
[2022-05-22 10:51] LABS: COVID-19 Test Negative (Negative); IDNOW Serial# 16C4AD1C
[2022-05-22 10:55] LABS: Alanine Aminotransferase 24 U/L (0-40); Albumin Level 4.8 g/dL (3.5-5.0); Alkaline Phosphatase 87 U/L (39-117); Anion Gap 10 (12-20); Aspartate Amino Transferase 24 U/L (5-37); Bilirubin Direct 0.3 mg/dL (0.0-0.5); Bilirubin Total 0.8 mg/dL (0.0-1.0); Blood Urea Nitrogen 20 mg/dL (9-16); Calcium 9.2 mg/dL (8.4-10.2); Carbon Dioxide 24 mmol/L (22-29); Chloride 108 mmol/L (96-108); Estimated Glomerular Filt Rate > 60; Glucose Random 96 mg/dL (60-115); Potassium 4.1 mmol/L (3.3-5.1); Sodium 138 mmol/L (135-145); Total Protein 7.9 g/dL (6.5-8.0)
[2022-05-22 11:00] LABS: IDNOW Serial# 9DD0AD1C; Influenza A Negative (Negative); Influenza B2 Negative (Negative)
[2022-05-22 11:21] LABS: SLIDE REVIEW VERIFIED
--- NOTE | 2022-05-22 13:02 | ED.NAVMDI ---
HPI - Nausea/Vomiting/Diarrhea General Chief complaint: Nausea/Vomiting/Diarrhea Stated complaint: Vomiting/Diarrhea Time Seen by Provider: 05/22/22 13:01 Source: patient Mode of arrival: ambulatory Limitations: no limitations History of Present Illness HPI Narrative: 32-year-old male with a history of GERD and asthma who presents to the ER with 2 days of nausea, vomiting, diarrhea. He reports Sunday he started feeling unwell with an upset stomach but then woke up Sunday morning he felt okay. He helped his brother do some cleaning at his house. When he woke up yesterday morning he had a recurrent upset stomach and had several episodes of loose stools. He denies any blood in his stools. He states whenever he eats or drinks anything it goes right through many need to go right to the bathroom. He reports his stomach is sore but no abdominal pain. He developed nausea and vomiting today. No blood in his vomitus. No fever or chills. His 2-year-old son has similar symptoms with several episodes of loose stools for the last 2 days. MD elicited complaint: nausea, vomiting and diarrhea Onset (ago): day(s) (2) Description of vomiting: food contents Description of diarrhea: watery and loose Associated nausea: Yes Associated abdominal pain: No Location of pain: none Severity: moderate Quality: aching Exacerbating factors: eating Relieving factors: none Associated symptoms: myalgias, loss of appetite, malaise and nausea/vomiting Related Data Previous Rx's Medication Instructions Recorded hydroxyzine HCl 25 mg tablet 25 mg PO BID PRN anxiety #14 tabs 11/22/20 omeprazole 20 mg capsule,delayed 20 mg PO DAILY #10 caps 12/08/20 release escitalopram oxalate 5 mg tablet 5 mg PO DAILY #30 tabs 12/30/20 ProAir HFA 90 mcg/actuation 2 puff inhalation Q4-6H PRN 02/10/21 aerosol inhaler (albuterol sulfate) shortness of breath or wheezing #8.5 grams albuterol sulfate 2.5 mg (3 mL) inhalation Q6H #180 02/10/21 mL ondansetron 4 mg disintegrating 4 mg PO Q8H PRN nausea and 05/22/22 tablet vomiting #7 tabs Allergies Allergy/AdvReac Type Severity Reaction Status Date / Time No Known Allergies Allergy Verified 07/29/21 12:50 Review of Systems Review of Systems: Constitutional: No Fever, No Chills ENT/Mouth: No sore throat, No Rhinorrhea, No Swallowing Difficulty Cardiovascular: No Chest Pain, No SOB, No Orthopnea, No Edema Respiratory: No Cough, No Sputum, No Wheezing, No dyspnea Gastrointestinal: + Nausea, + Vomiting, + Diarrhea, No abdominal Pain, No Hematochezia, No Melena Genitourinary: No Dysuria, No Urinary Frequency, No Hematuria Musculoskeletal: No joint pain, No Myalgias Skin: No Skin Lesions, No rash Neuro: + Weakness, No Numbness, No Dizziness, + Headache Psych: No Anxiety/Panic, No Depression Heme/Lymph: No Bruising, No Lymphadenopathy Endocrine: No Polyuria, No Polydipsia Gastrointestinal: Gastrointestinal: Reports nausea PMFSH Past Medical History Medical History Asthma Asthma GERD (gastroesophageal reflux disease) Physical exam Surgical History History of appendectomy Family History Family History Mother No problems noted. Father No problems noted. Social History Social History Alcohol intake: never Advance Directives: No Advance Directives Information Provided: Yes Current occupational status: employed Current occupation: rt hand /transporter for dealer [employer] Physical Exam Vital Signs: Vital Signs: Last Vital Signs Temp 98 F 05/22/22 10:06 Pulse 97 05/22/22 10:06 Resp 19 05/22/22 10:06 BP 115/77 05/22/22 10:06 Pulse Ox 99 05/22/22 10:06 O2 Del Method 05/22/22 10:06 BMI result Body Mass Index 29.2 Appearance: Alert. Oriented X3. No acute distress. Eyes: Pupils equal, round and reactive to light. ENT: Pharynx normal. Moist mucous membranes. Neck: Normal inspection. Neck supple. CVS: Normal heart rate and rhythm. Pulses normal. Respiratory: No respiratory distress. Breath sounds normal. Abdomen: Soft and nontender. normal +BS x4 Skin: Skin warm and dry. Normal skin color. Normal skin turgor. No rashes. Extremities: No lower extremity edema. Neuro: Oriented X 3. No motor deficit. No sensory deficit. Course Course Course Narrative: 32-year-old male presents to the ER with 2 days of nausea, vomiting, diarrhea. His son had similar symptoms. On arrival to the ER patient is afebrile with normal VS. His exam is unremarkable. Most likely gastroenteritis, less likely cholecystitis, appendicitis or diverticulitis. Labs are pending. recent COVID in March so less likely COVID. viral swabs sent. Reevaluation(s) Reevaluation #1: Labs are unremarkable. UA normal. COVID and Flu negative. He has been in the waiting room for 4 hours with no episodes of diarrhea or vomiting. Symptoms are most likely due to a viral gastroenteritis. Will give dose of imodium and zofran and send home with Rx for the same. Stable for d/c home with supportive care. MDM - Nausea/Vomiting/Diarrhea Lab Data Result diagrams: 05/22/22 10:26 05/22/22 10:26 Labs: Lab Results 05/22/22 05/22/22 05/22/22 Range/Units 10:21 10:21 10:26 WBC 9.5 (4.8-10.8) X10*3/uL RBC 5.31 (4.60-5.80) X10*6/uL Hgb 14.8 (14.0-18.0) g/dl Hct 43.7 (42.0-52.0) % MCV 82.3 (80.0-98.0) fL MCH 27.9 (27.0-33.0) pg MCHC 33.9 (31.0-36.0) g/dl RDW 12.7 (11.0-16.0) % Plt Count 195 (160-400) X10*3/uL MPV 11.0 (9.4-12.4) fL Immature Gran % (Auto) 0.5 H (0.0-0.4) % Neut % (Auto) 90.4 H (45-73) % Lymph % (Auto) 4.9 L (20-40) % [place] % (Auto) 4.0 (2-11) % Eos % (Auto) 0.1 (0-4) % Baso % (Auto) 0.1 (0-2) % Lymph # (Auto) 0.5 L (1.2-4.9) X10*3/uL [place] # (Auto) 0.4 (0.1-1.2) X10*3/uL Eos # (Auto) 0.0 (0.0-0.4) X10*3/uL Baso # (Auto) 0.0 (0.0-0.2) X10*3/uL Abs Immat Gran (auto) 0.05 H (0.00-0.03) X10*3/uL Absolute Neuts (auto) 8.6 H (2.0-8.3) x10*3/uL Absolute Nucleated RBC 0.000 (0.0-0.012) X10*3/uL Nucleated RBC % (auto) 0.0 (0.0-0.2) /100WBC Smear Tech's Comments VERIFIED Sodium (135-145) mmol/L Potassium (3.3-5.1) mmol/L Chloride (96-108) mmol/L Carbon Dioxide (22-29) mmol/L Anion Gap (12-20) BUN (9-16) mg/dL Creatinine (0.5-1.4) mg/dL Estim Creat Clear Calc Estimated GFR Random Glucose (60-115) mg/dL Calcium (8.4-10.2) mg/dL Total Bilirubin (0.0-1.0) mg/dL Direct Bilirubin (0.0-0.5) mg/dL AST (5-37) U/L ALT (0-40) U/L Alkaline Phosphatase (39-117) U/L Total Protein (6.5-8.0) g/dL Albumin (3.5-5.0) g/dL Urine Color Urine Appearance Urine pH (5.0-8.0) Ur Specific [place] (1.005-1.025) Urine Protein (NEG-TRACE) MG/DL Urine Glucose (UA) (NEG) MG/DL Urine Ketones (NEG) MG/DL Urine Blood (NEG) Urine Nitrite (NEG) Ur Leukocyte Esterase (NEG) COVID-19 (ELSA) Negative (Negative) COVID-19 Clin Com See Note Influenza Type A (ANAIS) Negative (Negative) Influenza Type B (ANAIS) Negative (Negative) Influenza A & B Note See Note 05/22/22 05/22/22 Range/Units 10:26 10:26 WBC (4.8-10.8) X10*3/uL RBC (4.60-5.80) X10*6/uL Hgb (14.0-18.0) g/dl Hct (42.0-52.0) % MCV (80.0-98.0) fL MCH (27.0-33.0) pg MCHC (31.0-36.0) g/dl RDW (11.0-16.0) % Plt Count (160-400) X10*3/uL MPV (9.4-12.4) fL Immature Gran % (Auto) (0.0-0.4) % Neut % (Auto) (45-73) % Lymph % (Auto) (20-40) % [place] % (Auto) (2-11) % Eos % (Auto) (0-4) % Baso % (Auto) (0-2) % Lymph # (Auto) (1.2-4.9) X10*3/uL [place] # (Auto) (0.1-1.2) X10*3/uL Eos # (Auto) (0.0-0.4) X10*3/uL Baso # (Auto) (0.0-0.2) X10*3/uL Abs Immat Gran (auto) (0.00-0.03) X10*3/uL Absolute Neuts (auto) (2.0-8.3) x10*3/uL Absolute Nucleated RBC (0.0-0.012) X10*3/uL Nucleated RBC % (auto) (0.0-0.2) /100WBC Smear Tech's Comments Sodium 138 (135-145) mmol/L Potassium 4.1 (3.3-5.1) mmol/L Chloride 108 (96-108) mmol/L Carbon Dioxide 24 (22-29) mmol/L Anion Gap 10 L (12-20) BUN 20 H (9-16) mg/dL Creatinine 1.11 (0.5-1.4) mg/dL Estim Creat Clear Calc 118.0 Estimated GFR > 60 Random Glucose 96 (60-115) mg/dL Calcium 9.2 (8.4-10.2) mg/dL Total Bilirubin 0.8 (0.0-1.0) mg/dL Direct Bilirubin 0.3 (0.0-0.5) mg/dL AST 24 D (5-37) U/L ALT 24 (0-40) U/L Alkaline Phosphatase 87 (39-117) U/L Total Protein 7.9 (6.5-8.0) g/dL Albumin 4.8 (3.5-5.0) g/dL Urine Color YELLOW Urine Appearance HAZY Urine pH 5.5 (5.0-8.0) Ur Specific [place] 1.025 (1.005-1.025) Urine Protein TRACE (NEG-TRACE) MG/DL Urine Glucose (UA) NEG (NEG) MG/DL Urine Ketones NEG (NEG) MG/DL Urine Blood NEG (NEG) Urine Nitrite NEG (NEG) Ur Leukocyte Esterase NEG (NEG) COVID-19 (ELSA) (Negative) COVID-19 Clin Com Influenza Type A (ANAIS) (Negative) Influenza Type B (ANAIS) (Negative) Influenza A & B Note Critical Care Time Critical Care Time Critical Care Time: No Discharge Plan Discharge Clinical Impression: Gastroenteritis Patient Disposition: Home, Self-Care Instructions: Gastroenteritis (ED) Additional Instructions: You lab workup today was unremarkable. Your urine test was negative for infection. You most likely have a viral GI bug also known as gastroenteritis. Treatment is supportive care, symptoms usually resolve on their own in 48-72 hours. Recommend rest and plenty of oral hydration. Stick to a bland diet like soup and toast while you are not feeling well. Take the prescribed medication as needed for nausea. Recommend over the counter Pepto Bismol or Imodium for upset stomach and diarrhea. Follow up with your doctor as needed. If you develop new or worsening symptoms call 911 or come back to the ER for further evaluation. Prescriptions: New ondansetron 4 mg tablet,disintegrating 4 mg PO Q8H PRN (Reason: nausea and vomiting) Qty: 7 0RF No Action hydroxyzine HCl 25 mg tablet 25 mg PO BID PRN (Reason: anxiety) Qty: 14 0RF escitalopram oxalate 5 mg tablet 5 mg PO DAILY Qty: 30 0RF albuterol sulfate [ProAir HFA] 90 mcg/actuation HFA aerosol inhaler 2 puff inhalation Q4-6H PRN (Reason: shortness of breath or wheezing) Qty: 8.5 0RF albuterol sulfate 2.5 mg /3 mL (0.083 %) solution for nebulization 2.5 mg inhalation Q6H Qty: 180 0RF omeprazole 20 mg capsule,delayed release(DR/EC) 20 mg PO DAILY Qty: 10 0RF
[2022-05-22] MEDS: Loperamide HCl 2 MG CAPSULE 4 MG PO (13:16)
[2022-05-22] MEDS: Ondansetron ODT 4 MG TAB.RAPDIS TRANSLINGU (13:16)
== END 2022-05-22 13:44 | disposition home or self-care (01) ==
PROVIDERS: Emergency Provider Student in an Organized Health Care Education/Training Program; PCP Internal Medicine
DX: K52.9 Noninfective gastroenteritis and colitis, unspecified (principal); R11.2 Nausea with vomiting, unspecified; M79.10 Myalgia, unspecified site; Z20.822 Contact with and (suspected) exposure to COVID-19; Z79.899 Other long term (current) drug therapy
CPT/HCPCS: 80048; 80076; 81003; 85025; 87502; 87635; 99283

== ENCOUNTER → 2024-10-13 14:35 | Outpatient (BNVA) | payer SELFPAY | PROVIDERS: PCP Internal Medicine; Visit Provider Physician Assistant Medical | DX: Z02.79 Encounter for issue of other medical certificate (principal) ==